=== PATIENT | male | born 1975 | race American Indian/Alaskan Native ===

== ENCOUNTER 2017-02-07 22:16 | Emergency (ER) | payer MEDICAID, MEDICARE ==
[~2017-02-07] VITALS: Ht 185.4 cm; Wt 88.5 kg
--- NOTE | 2017-02-07 22:35 | NUR ---
Patient to ER bed 6 to gown for evaluation. Side rails up. Report given to MIGUEL ANGEL BENNETT.
[2017-02-07 22:46] VITALS: BP_SYST 150
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
--- NOTE | 2017-02-07 22:58 | NUR ---
ER at bedside examining patient.
[2017-02-07] MEDS ORDERED: KETOROLAC TROMETHAMINE 60 MG/2 ML VIAL IM ONE (23:15)
[2017-02-07] MEDS ORDERED: IBUPROFEN 800 MG TABLET PO ONE (23:30)
--- NOTE | 2017-02-07 23:56 | NUR ---
No adverse reaction to Motrin noted at discharge.
[2017-02-07 23:57] VITALS: BP_SYST 143
--- NOTE | 2017-02-07 23:57 | NUR ---
Patient given written and verbal discharge instructions and verbalizes understanding. ER MD Escobar discussed with patient the results and treatment provided. Patient in stable condition. ID arm band removed. Rx of Motrin 800 given. Patient educated on pain management and to follow up with PMD. Pain Scale 2/10. Opportunity for questions provided and answered.
== END 2017-02-07 23:57 | disposition home or self-care (01) ==
LOC: SED 22:16
DX: S16.1XXA Strain of muscle, fascia and tendon at neck level, initial encounter (principal); S90.31XA Contusion of right foot, initial encounter; R03.0 Elevated blood-pressure reading, without diagnosis of hypertension; Z88.5 Allergy status to narcotic agent; V89.2XXA Person injured in unspecified motor-vehicle accident, traffic, initial encounter; Y93.89 Activity, other specified; Y92.89 Other specified places as the place of occurrence of the external cause; Y99.8 Other external cause status
CPT/HCPCS: 72040-TC; 99284; J1885